=== PATIENT | male | born 1950 | race Caucasian/White ===

== ENCOUNTER → 2017-04-04 | Outpatient (CLI) | payer OTHER, MEDICARE ==
[~2017-04-04] VITALS: Ht 182.9 cm; Wt 106.5 kg
[~2017-04-04] MED LIST: FLEXERIL PO; IBUPROFEN 600600 M1 PO; LEXAPRO 10 MG T10 M1 PO; NO HOME MEDS; NORCO 5-325 TA1 EACH PO; TESTOSTERO200 MG/11 IM
--- NOTE | ~2017-04-04 | HPC ---
[facility] [address] [place] [address] PAIN MANAGEMENT CONSULTATION Name: ADARSH VILLALBA Room #: REG ELIJAH QuinterosDoreen#: [id number] Admission: 04/04/17 Attend Phys: Emmanuel Sweet MD Discharge: Date of : 48 Report #: [id number] THIS REPORT FOR: //name// CC: RONNIE Sweet DATE OF SERVICE: 04/04/2017 CHIEF COMPLAINT: Low back pain with radiation and radicular pain into the left leg following an L4-L5 distribution. This is a followup visit for the patient who was last seen about 7 months ago for an epidural steroid injection. He has degenerative disk at L4-L5 evident on the plain film x-rays. We do not have an MRI. Periodically since 2011, he has had episodes of severe pain that radiates through his left buttock down into his left leg. It is also associated with tingling sensation in the base of his foot in the L5 distribution. In the last 2 weeks, it has been severe describing it as 8-9 in the car, he had to stop his car, get out, move around and still has on a daily basis shooting and intermittent pain, worse with standing and driving. He has done some general exercises we have talked about in the past. He has taken ibuprofen with limited relief and he is here today hoping for an epidural injection. MEDICATIONS: Testosterone, Lexapro and ibuprofen. ALLERGIES: None. PAST MEDICAL HISTORY: Remarkable for some shoulder issues, but he denies cardiovascular or pulmonary problems. SOCIAL HISTORY: He denies use of tobacco. He drinks alcohol in social setting. REVIEW OF SYSTEMS: Negative. PHYSICAL EXAMINATION: He has gained a bit of weight since his last visit. His blood pressure is 130/57, heart rate 62. BMI is 31.8. Moves from sitting to standing position, ambulates with mild antalgic features. Straight leg raising is positive on the left following an L5 distribution. There is no focal weakness. No numbness or tingling. IMPRESSION: Low back pain with radiculopathy following an L4-L5 distribution on the left. RECOMMENDATION: Epidural steroid injection in the left paramedian, L4-L5 under fluoroscopic guidance. [facility] [address] [place] [address] PAIN MANAGEMENT CONSULTATION Name: ADARSH VILLALBA Room #: REG Lobito Perry#: [id number] Admission: 04/04/17 Attend Phys: Emmanuel Sweet MD Discharge: Date of : 48 Report #: [id number] He was taken to fluoroscopic suite, placed prone, skin prepped with ChloraPrep. Skin anesthetized over the L4-L5 interspace. A 20-gauge Tuohy epidural needle advanced first attempt in the epidural space with loss of resistance. There was no blood or CSF aspirated. 1 mL of Omnipaque injected nicely into the epidural space. Good spread of dye observed. It was then followed by 3 mL of 0.5% lidocaine mixed with 80 mg triamcinolone. He tolerated the procedure well and was observed for 45 minutes and discharged. Followup visit planned as needed. We do not do a series of injections for the patient and I do not prescribe medication. He has been a good responder to single injection treatments. By: [id number] Emmanuel Sweet MD /nt
[2017-04-04 11:03] VITALS: BP 130/57
== END | disposition home or self-care (01) ==
LOC: PAIN 04-03 06:57
DX: M54.16 Radiculopathy, lumbar region (principal); Z98.890 Other specified postprocedural states

== ENCOUNTER → 2017-11-15 | Outpatient (CLI) | payer OTHER, MEDICARE ==
[~2017-11-15] VITALS: Ht 182.9 cm; Wt 106.2 kg
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
[2017-11-15 13:08] VITALS: BP 165/72
== END | disposition home or self-care (01) ==
LOC: PAIN 08:43
DX: M54.16 Radiculopathy, lumbar region (principal); Z79.899 Other long term (current) drug therapy; Z68.31 Body mass index [BMI] 31.0-31.9, adult